=== PATIENT | male | born 1985 | race Caucasian/White ===

== ENCOUNTER 2021-05-30 14:31 | Outpatient (CLI) | payer OTHER | END 2021-05-30 14:32 | disposition other institution (70) | LOC: EMS 14:31 | DX: R51.9 Headache, unspecified (principal); H53.9 Unspecified visual disturbance; R29.898 Other symptoms and signs involving the musculoskeletal system ==

== ENCOUNTER 2021-05-30 15:16 | Emergency (ER) | payer OTHER ==
[2021-05-30] MEDS ORDERED: KETOROLAC 30 MG/ML VIAL IVP STA (15:52)
[2021-05-30] MEDS ORDERED: SODIUM CHLORIDE 0.9% 1,000 ML IV STA (15:52)
[2021-05-30] MEDS ORDERED: DROPERIDOL 5 MG/2 ML VIAL IVP STA (15:52)
--- NOTE | 2021-05-30 15:57 | ED Physician Documentation ---
History of Present Illness - Stated complaint Stated Complaint: MARVIN/NAUSEA - Chief complaint Chief Complaint: Neuro - History obtained from History obtained from: Patient - Additonal information Additional information: Patient comes emergency department chief complaint of headache, nausea, dizziness, and whole body numbness. He states that he has been dealing with the episodes of dizziness and lightheadedness for some time and actually just finished a months long series of visits with cardiology to try to get to the bottom of why he was having the symptoms. 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 He states nobody else on ship had the same symptoms. The patient was set up to see neurology to try to sort this out, but 1 day while sitting in his office working, he felt a pop sensation deep in his head and the symptoms suddenly resolved. The patient states that he did end up still see neurology and they did a series of brain scans and could not find anything to explain this patient's symptoms. He states he has been free of headaches since until today. He states he began to notice development of a headache and also, that he was having intermittent bouts of nausea with wavy or "spotty" vision. Patient states that this combined with the dizziness that he has already been having, and then he would get waves of whole body numbness in between. Patient denies fevers or chills. Is not been sick with anything lately. He states he was feeling pretty fine yesterday. Patient did not take any medication at home. He drank 2 quarts of water this morning, but his symptoms seemed to persist on and off and he finally decided to come in. No recent head injuries. No other complaints at this time. Review of Systems Ten Systems: 10 systems reviewed and negative Constitutional: reports: Reviewed and negative Eyes: reports: Reviewed and negative Ears: reports: Reviewed and negative Nose: reports: Reviewed and negative Throat: reports: Reviewed and negative Cardiac: reports: Reviewed and negative Respiratory: reports: Reviewed and negative GI: reports: Reviewed and negative : reports: Reviewed and negative Skin: reports: Reviewed and negative Musculoskeletal: reports: Reviewed and negative Neurologic: reports: Numbness, Headache Psychiatric: reports: Reviewed and negative Endocrine: reports: Reviewed and negative Immunocompromised: reports: Reviewed and negative PD PAST MEDICAL HISTORY - Past Medical History Past Medical History: Yes Cardiovascular: Hypertension Respiratory: Asthma Neuro: None Endocrine/Autoimmune: None GI: None : None HEENT: None Psych: None Musculoskeletal: None Derm: None - Past Surgical History Past Surgical History: No - Allergies Allergies/Adverse Reactions: Allergies Allergy/AdvReac Type Severity Reaction Status Date / Time No Known Drug Allergies Allergy Verified 05/30/21 15:22 - Social History Does the pt smoke?: No Smoking Status: Former smoker Does the pt drink ETOH?: Yes ETOH Use: Beer Does the pt have substance abuse?: No - Immunizations Immunizations are current?: Yes - POLST Patient has POLST: No PD ED PE NORMAL - Vitals Vital signs reviewed: Yes - General General: Alert and oriented X 3, No acute distress, Well developed/nourished - HEENT HEENT: Atraumatic, PERRL, EOMI, Moist mucous membranes - Neck Neck: Supple, no meningeal sign - Cardiac Cardiac: RRR, No murmur, Strong equal pulses - Respiratory Respiratory: No respiratory distress, Clear bilaterally - Abdomen Abdomen: Soft, Non tender, Non distended - Derm Derm: Normal color, Warm and dry, No rash - Extremities Extremities: No deformity, No edema, No calf tenderness / cord - Neuro Neuro: Alert and oriented X 3, shank faker 2-12 intact, No motor deficit, No sensory deficit, Normal speech - Psych Psych: Normal mood, Normal affect Results - Vitals Vitals: Vital Signs - 24 hr 05/30/21 05/30/21 15:22 17:46 Temperature 36.3 C L 36.7 C Heart Rate 60 72 Respiratory 18 18 Rate Blood Pressure 144/82 H 124/88 H O2 Saturation 100 100 Oxygen O2 Source Room air - Labs Labs: Laboratory Tests 05/30/21 05/30/21 05/30/21 16:04 16:04 16:04 WBC 4.5 L RBC 4.91 Hgb 15.3 Hct 44.1 MCV 89.8 MCH 31.2 H MCHC 34.7 RDW 11.2 L Plt Count 186 MPV 9.5 Neut # (Auto) 2.8 Lymph # (Auto) 1.3 L [place] # (Auto) 0.4 Eos # (Auto) 0.1 Baso # (Auto) 0.0 Absolute Nucleated RBC 0.00 Nucleated RBC % 0.0 Sodium 135 Potassium 3.6 Chloride 97 L Carbon Dioxide 26 Anion Gap 12.0 BUN 12 Creatinine 0.9 Estimated GFR (MDRD) 94 Glucose 105 H Calcium 9.8 Total Bilirubin 0.7 AST 22 ALT 23 Alkaline Phosphatase 79 Total Protein 7.4 Albumin 4.5 Globulin 2.9 Albumin/Globulin Ratio 1.6 Lipase 27 TSH 2.02 PD MEDICAL DECISION MAKING - ED course Complexity details: reviewed results, re-evaluated patient, considered differe ntial, d/w patient ED course: Pt's sx were most consistent with a migraine, considering headache, visual phenomena, and nausea. This was superimposed on the pt's ongoing li ghtheadedness/dizziness. Pt had already had extensive specialty evaluation with extensive testing by both neurology and cardiology. Given that pt had only had a headache for one day after months of no headaches, and displayed no acutely concerning sx today, I did not feel that emergent imaging was indicated. Pt was worked up with labs, which were unremarkable. He was treated symptomatically, w ith improvement in sx. I have d/w him that if his headaches become chronic again, he will need to talk with his PCP about MRI or repeat neurology eval. We have discussed the usual indications for return. Departure - Departure Disposition: 01 Home, Self Care Clinical Impression: Episodic lightheadedness, Migraine syndrome Condition: Stable Instructions: ED Headache Migraine Comments: Your labs look good. Given that is been a very long time since she last had a run of headaches, and this is just started today, imaging is unlikely to be helpful. However, if you develop an ongoing streak of headaches again, MRI is probably going to be the most useful. You may talk to your primary care physician about scheduling this. Please continue to follow with them to try to determine the cause of your ongoing symptoms. No emergent condition has been identified today. Discharge Date/Time: 05/30/21 17:50
[2021-05-30 16:10] LABS: BASOPHILS % (AUTO) 0.2 %; EOSINOPHILS # (AUTO) 0.1 10^3/uL (0.0-0.7); EOSINOPHILS % (AUTO) 1.3 %; HCT - HEMATOCRIT 44.1 % (42.0-52.0); HGB - HEMOGLOBIN 15.3 g/dL (14.0-18.0); LYMPHOCYTES # (AUTO) 1.3 10^3/uL (1.5-3.5); LYMPHOCYTES % (AUTO) 27.9 %; MEAN CORPUSCULAR HEMOGLOBIN 31.2 pg (27.0-31.0); MEAN CORPUSCULAR HGB CONC 34.7 g/dL (32.0-36.0); MEAN CORPUSCULAR VOLUME 89.8 fL (80.0-94.0); MEAN PLATELET VOLUME 9.5 fL (7.4-11.4); MONOCYTES # (AUTO) 0.4 10^3/uL (0.0-1.0); NEUTROPHILS # (AUTO) 2.8 10^3/uL (1.5-6.6); NEUTROPHILS % (AUTO) 61.9 %; PLT - PLATELET COUNT 186 10^3/uL (130-450); RED BLOOD COUNT 4.91 10^6/uL (4.70-6.10); RED CELL DISTRIBUTION WIDTH 11.2 % (12.0-15.0); WHITE BLOOD COUNT 4.5 x10^3/uL (4.8-10.8)
[2021-05-30 16:24] LABS: ALBUMIN 4.5 g/dL (3.2-5.5); ALBUMIN/GLOBULIN RATIO 1.6 (1.0-2.2); BILIRUBIN,TOTAL 0.7 mg/dL (0.2-1.0); CALCIUM 9.8 mg/dL (8.5-10.3); CREATININE 0.9 mg/dL (0.6-1.2); POTASSIUM 3.6 mmol/L (3.5-5.0); TOTAL PROTEIN 7.4 g/dL (6.7-8.2)
[2021-05-30 17:48] VITALS: BP 124/88
== END 2021-05-30 17:50 | disposition home or self-care (01) ==
LOC: ED 15:16
DX: G43.909 Migraine, unspecified, not intractable, without status migrainosus (principal); Z87.891 Personal history of nicotine dependence; R42 Dizziness and giddiness
CPT/HCPCS: 36415; 80053; 83690; 84443; 85025; 93005; 96374; 96375; 99282

== ENCOUNTER 2023-07-23 10:08 | Outpatient (CLI) | payer OTHER ==
--- NOTE | 2023-07-23 19:06 | MRI Report ---
PROCEDURE: CERVICAL SPINE WO INDICATIONS: ANESTHESIA OF SKIN TECHNIQUE: Noncontrast sagittal T1 spin echo and T2 fast spin echo, sagittal STIR, foraminal oblique sagittal T2 fast spin echo, and axial gradient echo or T2 fast spin echo through the cervical spine. COMPARISON: None. FINDINGS: Image quality: Excellent. Alignment and Curvature: There is normal bony alignment. Bone Marrow: Marrow demonstrates normal overall signal. Spinal Cord: Visualized spinal cord has normal size and signal. No cerebellar tonsillar herniation. Paraspinous Soft Tissues: No paravertebral masses. Prevertebral soft tissues are normal in thicknes s. C2-C3: Normal in appearance. C3-C4: Normal in appearance. C4-C5: Annulus tear associated with relatively flat central posterior disc extrusion, extending supe riorly to the level of the midportion of C4 and inferior to the upper portion of C5. There is indenta tion on the cord secondary to disc extrusion. AP diameter of the central canal measures 9.1 mm. No fo raminal narrowing. C5-C6: Small focal central posterior disc protrusion without abutting the cord, without canal stenos is or foraminal stenosis. C6-C7: Normal in appearance. C7-T1: Normal in appearance. IMPRESSION: 1. At C4-C5, there is annulus tear associated with relatively flat superior and inferior central post erior disc extrusion. This indents on the cord and results in mild to moderate canal stenosis. 2. Small focal central posterior disc protrusion at C5-C6 without abutting the cord, without canal st enosis. 3. No other significant findings. Canal is widely patent at other levels. Foramina are widely patent at all cervical levels. Reviewed by: Bernardo Pan MD on 07/23/2023 7:05 PM PST Approved by: Bernardo Pan MD on 07/23/2023 7:05 PM PST Station ID: [id number]
== END 2023-07-23 10:09 | disposition home or self-care (01) ==
LOC: DI 10:08
PROVIDERS: ATTEND General Practice
DX: R20.0 Anesthesia of skin (principal); M50.221 Other cervical disc displacement at C4-C5 level; M50.321 Other cervical disc degeneration at C4-C5 level; M48.02 Spinal stenosis, cervical region; M50.222 Other cervical disc displacement at C5-C6 level